=== PATIENT | female | born 1995 | race Caucasian/White ===

== ENCOUNTER → 2016-05-13 | Outpatient (CLI) | payer BC ==
--- NOTE | 2016-05-13 13:10 | MAMMOGRAPHY REPORT ---
ULTRASOUND OF LEFT BREAST: 05/13/2016 CLINICAL HISTORY: The patient reports a mass on the left areola for approximately 6 months, which fl uctuates in size and has ruptured approximately 3 times. It last ruptured a few days ago, with pus/ blood expressed from the lump. COMPARISON: No prior exams were available for comparison. TECHNIQUE: Real-time targeted ultrasound of the left breast was performed. FINDINGS: Real-time, high-resolution targeted ultrasound was performed of the palpable lump pointed out by the patient, in the left breast at approximately 8:00 subareolar region. At the site of the palpable l ump, there is an oval hypoechoic mass which is located within the areolar skin, measuring 2.2 x 0.5 x 1.2 cm. Mild surrounding vascularity is noted. No mass or other suspicious finding is seen withi n the underlying breast parenchyma. As this is located an intradermal location and given the clinic al history, the mass is benign and likely represents a sebaceous/Saenz gland cyst. IMPRESSION: ACR BI-RADS CATEGORY 2: BENIGN Intradermal hypoechoic 2.2 cm mass at the site of the palpable lump involving the areola in the left breast at 8:00. The mass is benign and likely represents a sebaceous/Saenz gland cyst. Per t he patient, the lump fluctuates in size and has ruptured multiple times. Consider surgical excision for treatment. There is no sonographic evidence of malignancy. The patient was verbally notified of the results. Nicole Preston M.D. /:05/13/2016 11:38:13 [employer]: Saumya MARCANO)([place]), [facility] letter sent: Normal 1/2 BI-RADS Code: ACR BI-RADS Category 2: Benign
== END | disposition home or self-care (01) ==
LOC: C.MAMM 09:11
PROVIDERS: ATTEND Nurse Practitioner Women's Health
DX: N63 Unspecified lump in breast (principal)